=== PATIENT | male | born 1990 | race Caucasian/White ===

== ENCOUNTER 2016-11-07 14:59 | Emergency (ER) | payer MEDICAID ==
[2016-11-07] MEDS ORDERED: Ketorolac 30 MG/ML SDV IM ONE (15:09)
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
[2016-11-07 15:21] VITALS: BP 119/76
--- NOTE | 2016-11-07 16:05 | CR ---
INDICATION: Injury, pain in second and third digits, all metacarpals. RIGHT HAND: Three views of the right hand revealed no evidence of an acute fracture, dislocation, or other significant bone or joint abnormality. IMPRESSION: Normal right hand. Report was called to Dr. Acuna at 1555 hours, 11/07/2016. [facility]
--- NOTE | 2016-11-07 16:06 | CR ---
INDICATION: Generalized pain all over elbow after injury. RIGHT ELBOW: Three views of the right elbow revealed no evidence of an acute fracture, dislocation, or other significant bone or joint abnormality. No evidence of a radial head fracture site is seen. IMPRESSION: Normal right elbow. Report was called to Dr. Acuna at 1555 hours, 11/07/2016. [facility]
== END 2016-11-07 16:20 | disposition home or self-care (01) ==
LOC: FB.ED 14:59
DX: S50.01XA Contusion of right elbow, initial encounter (principal); V89.2XXA Person injured in unspecified motor-vehicle accident, traffic, initial encounter
CPT/HCPCS: 73080; 73130; 96372; 99282; 99284; A4217; J1885

== ENCOUNTER 2017-05-09 13:39 | Emergency (ER) | payer MEDICAID ==
[2017-05-09] MEDS ORDERED: Diphtheria,Pertussis(Acell),Tetanus Vaccine 0.5 ML SDV IM ONE (13:49)
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
[2017-05-09 14:43] LABS: ACETAMINOPHEN < 2 ug/mL (10-30)
[2017-05-09 19:24] VITALS: BP 144/74
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
== END 2017-05-09 16:10 ==
LOC: FB.ED 13:39
DX: S61.411A Laceration without foreign body of right hand, initial encounter (principal); K02.9 Dental caries, unspecified; F15.10 Other stimulant abuse, uncomplicated; F17.210 Nicotine dependence, cigarettes, uncomplicated; Z59.0 Homelessness; Y04.0XXA Assault by unarmed brawl or fight, initial encounter
CPT/HCPCS: 12001; 36415; 73130; 80053; 80305; 81001; 82550; 84443; 85025; 86140; 99285; G0480